=== PATIENT | male | born 1990 | race Hispanic/Latino ===

== ENCOUNTER 2018-05-26 17:54 | Emergency (ER) | payer SELFPAY ==
--- NOTE | 2018-05-26 20:08 | RAD REPORT ---
EXAM DESCRIPTION: RAD - Wrist Left 3 View - 05/26/2018 7:58 pm CLINICAL HISTORY: Fall with wrist pain COMPARISON: None. FINDINGS: Ventral dislocation of the lunate bone present. Faint lucent line is present in the midbod y of the scaphoid not definitive for fracture. Carpal bone alignment is otherwise unremarkable. No fo reign body or other soft tissue abnormality. IMPRESSION: Lunate dislocation. Faint lucent line in the scaphoid bone questionable for fracture.
--- NOTE | 2018-05-26 20:10 | RAD REPORT ---
EXAM DESCRIPTION: RAD - Forearm Left - 05/26/2018 7:58 pm CLINICAL HISTORY: Arm and wrist pain, fall 3 weeks earlier COMPARISON: None. FINDINGS: No fracture or acute bone finding of the radius and ulna. Elbow joint is normal. Scaphoid dislocation is present. Faint lucent line seen in the scaphoid bone on the wrist examination is not e vident on this study. The wrist examination better images the scaphoid bone. No foreign body or other soft tissue abnormality. IMPRESSION: Lunate dislocation. No radius or ulna fracture.
--- NOTE | 2018-05-26 20:11 | ER ---
Nurse's Notes [facility] Name: Ahsan Dixon Age: 27 yrs Sex: Male : 1990 Arrival Date: 05/26/2018 Time: 17:59 Bed Treatment Private MD: None, None Diagnosis: Lunate Dislocation;Fracture of navicular [scaphoid] bone of wrist Presentation: 05/26 18:14 Presenting complaint: Patient states: I fell off of a horse a few weeks ago and my left la1 wrist has been hurting since then, no previous imaging done. Transition of care: patient was not received from another setting of care. Onset of symptoms was May 26, 2018. Risk Assessment: Do you want to hurt yourself or someone else? Patient reports no desire to harm self or others. Initial Sepsis Screen: Does the patient meet any 2 criteria? No. Patient's initial sepsis screen is negative. Does the patient have a suspected source of infection? No. Patient's initial sepsis screen is negative. Care prior to arrival: None. 18:14 Method Of Arrival: Ambulatory la1 18:14 Acuity: PEDRO 4 la1 Historical: - Allergies: 18:15 No Known Allergies; la1 - PMHx: 18:15 None; la1 - Immunization history:: Adult Immunizations up to date. - Social history:: Smoking status: Patient/guardian denies using tobacco. - Ebola Screening: : No symptoms or risks identified at this time. Screenin:29 Abuse screen: Denies threats or abuse. Nutritional screening: No deficits noted. bb Tuberculosis screening: No symptoms or risk factors identified. Fall Risk None identified. Assessment: 19:28 General: Appears in no apparent distress. Behavior is calm, cooperative. bb 19:29 Pain: Complains of pain in left wrist. Neuro: Level of Consciousness is awake, alert, bb obeys commands, Oriented to person, place, time, situation. Cardiovascular: No deficits noted. Respiratory: Respiratory effort is even, unlabored. GI: No deficits noted. Derm: Skin is pink, warm \T\ dry. Musculoskeletal: Circulation, motion, and sensation intact. Reports pain in left wrist. 21:21 Reassessment: Patient appears in no apparent distress at this time. No changes from la1 previously documented assessment. Patient and/or family updated on plan of care and expected duration. Pain level reassessed. Vital Signs: 18:15 BP 106 / 63; Pulse 74; Resp 16; Temp 97.4; Pulse Ox 98% on R/A; Weight 68.04 kg; la1 ED Course: 17:59 Patient arrived in ED. sb2 17:59 None, None is Private Physician. sb2 18:15 Triage completed. la1 18:15 Arm band placed on left wrist. la1 18:55 Sailaja Alberts FNP-C is [facility]. kb 18:55 Eduard Fernandez MD is Attending Physician. kb 19:29 Patient has correct armband on for positive identification. Call light in reach. Adult bb w/ patient. 20:00 Wrist Left 3 View In Process Unspecified. EDMS 20:00 Forearm Left XRAY In Process Unspecified. EDMS 21:11 Orthoglass splint: Thumb spica splint applied on left forearm. mt 21:11 Sling applied to left arm. mt 21:21 No provider procedures requiring assistance completed. Patient did not have IV access la1 during this emergency room visit. Administered Medications: No medications were administered Outcome: 20:10 Discharge ordered by MD. kb 21:21 Discharged to home ambulatory. la1 21:21 Condition: stable 21:21 Discharge instructions given to patient, Instructed on discharge instructions, follow up and referral plans. medication usage, Demonstrated understanding of instructions, follow-up care, medications. 21:22 Patient left the ED. la1 Signatures: Dispatcher [employer] EDMS Sailaja Alberts FNP-C FNP-Ckb Ballard, Brenda, RN RN bb Attema, Lee, RN RN la1 Maya Oliva wy Janice Nicholas sb2
--- NOTE | 2018-05-26 20:12 | EDPHYS ---
Physician Documentation [facility] Name: Ahsan Dixon Age: 27 yrs Sex: Male : 1990 Arrival Date: 05/26/2018 Time: 17:59 Bed Treatment Private MD: None, None ED Physician Eduard Fernandez HPI: 05/26 19:48 This 27 yrs old Male presents to ER via Ambulatory with complaints of Wrist kb Injury. 19:48 The patient or guardian reports decreased range of motion, injury, pain, swelling. The kb complaints affect the left wrist diffusely. Context: The problem was sustained outdoors, resulted from a fall, from horse, on an outstretched hand. Onset: The symptoms/episode began/occurred 3 week(s) ago. Modifying factors: The symptoms are alleviated by nothing, the symptoms are aggravated by nothing. Associated signs and symptoms: Pertinent negatives: cyanosis distally, decreased sensation distally, fever, nausea, numbness distally, tingling distally, vomiting. The patient has not experienced similar symptoms in the past. The patient has not recently seen a physician. Historical: - Allergies: 18:15 No Known Allergies; la1 - PMHx: 18:15 None; la1 - Immunization history:: Adult Immunizations up to date. - Social history:: Smoking status: Patient/guardian denies using tobacco. - Ebola Screening: : No symptoms or risks identified at this time. ROS: 19:47 Constitutional: Negative for fever, chills, and weight loss, Cardiovascular: Negative kb for chest pain, palpitations, and edema, Respiratory: Negative for shortness of breath, cough, wheezing, and pleuritic chest pain, Abdomen/GI: Negative for abdominal pain, nausea, vomiting, diarrhea, and constipation, Back: Negative for injury and pain, Skin: Negative for injury, rash, and discoloration, Neuro: Negative for headache, weakness, numbness, tingling, and seizure. 19:47 MS/extremity: Positive for injury or acute deformity, pain, swelling, of the left forearm. Exam: 19:48 Constitutional: This is a well developed, well nourished patient who is awake, alert, kb and in no acute distress. Head/Face: Normocephalic, atraumatic. ENT: Nares patent. No nasal discharge, no septal abnormalities noted. Tympanic membranes are normal and external auditory canals are clear. Oropharynx with no redness, swelling, or masses, exudates, or evidence of obstruction, uvula midline. Mucous membranes moist. Neck: Trachea midline, no thyromegaly or masses palpated, and no cervical lymphadenopathy. Supple, full range of motion without nuchal rigidity, or vertebral point tenderness. No Meningismus. Chest/axilla: Normal chest wall appearance and motion. Nontender with no deformity. No lesions are appreciated. Cardiovascular: Regular rate and rhythm with a normal S1 and S2. No gallops, murmurs, or rubs. Normal PMI, no JVD. No pulse deficits. Respiratory: Lungs have equal breath sounds bilaterally, clear to auscultation and percussion. No rales, rhonchi or wheezes noted. No increased work of breathing, no retractions or nasal flaring. Abdomen/GI: Soft, non-tender, with normal bowel sounds. No distension or tympany. No guarding or rebound. No evidence of tenderness throughout. Skin: Warm, dry with normal turgor. Normal color with no rashes, no lesions, and no evidence of cellulitis. MS/ Extremity: Pulses equal, no cyanosis. Neurovascular intact. Full, normal range of motion. Neuro: Awake and alert, GCS 15, oriented to person, place, time, and situation. Cranial nerves II-XII grossly intact. Motor strength 5/5 in all extremities. Sensory grossly intact. Cerebellar exam normal. Normal gait. Vital Signs: 18:15 BP 106 / 63; Pulse 74; Resp 16; Temp 97.4; Pulse Ox 98% on R/A; Weight 68.04 kg; la1 MDM: 19:27 Patient medically screened. kb 19:48 Data reviewed: vital signs, nurses notes. Data interpreted: Pulse oximetry: on room air kb is 98 %. Interpretation: normal. 20:05 Counseling: I had a detailed discussion with the patient and/or guardian regarding: the kb historical points, exam findings, and any diagnostic results supporting the discharge/admit diagnosis, radiology results, the need for outpatient follow up, a orthopedic surgeon, to return to the emergency department if symptoms worsen or persist or if there are any questions or concerns that arise at home. 05/26 19:29 Order name: Forearm Left XRAY; Complete Time: 20:15 kb 05/26 20:00 Order name: Wrist Left 3 View; Complete Time: 20:09 EDCT 05/26 20:10 Order name: Thumb Spica Splint; Complete Time: 21:12 kb 05/26 20:10 Order name: Sling; Complete Time: 21:12 kb Administered Medications: No medications were administered Disposition: 05/27 07:36 Co-signature as Attending Physician, Eduard Fernandez MD I agree with the assessment and brigitte plan of care. Disposition: 05/26/18 20:10 Discharged to Home. Impression: Lunate Dislocation, Fracture of navicular [scaphoid] bone of wrist. - Condition is Stable. - Discharge Instructions: Scaphoid Fracture, Cast or Splint Care, [id number], Lunate Dislocation. - Medication Reconciliation Form, Thank You Letter, Antibiotic Education, Prescription Opioid Use form. - Follow up: Emergency Department; When: As needed; Reason: Worsening of condition. Follow up: Private Physician; When: 2 - 3 days; Reason: Recheck today's complaints, Continuance of care, Re-evaluation by your physician. Signatures: Dispatcher [employer] [facility] Sailaja Alberts, [employer]-C [employer]ER-Eduard Rodriguez MD MD cha Attema, Lee RN RN la1 Corrections: (The following items were deleted from the chart) 05/26 19:54 19:54 Forearm Right ordered. [facility] EDCT 19:54 19:54 Forearm Right ordered. [facility] EDCT 19:55 19:34 Wrist Left 3 View+RAD.[email or web address].BRZ ordered. [facility] 21:22 20:10 05/26/2018 20:10 Discharged to Home. Impression: Lunate Dislocation; Fracture of la1 navicular [scaphoid] bone of wrist. Condition is Stable. Forms are Medication Reconciliation Form, Thank You Letter, Antibiotic Education, Prescription Opioid Use. Follow up: Emergency Department; When: As needed; Reason: Worsening of condition. Follow up: Private Physician; When: 2 - 3 days; Reason: Recheck today's complaints, Continuance of care, Re-evaluation by your physician. kb
== END 2018-05-26 21:22 | disposition home or self-care (01) ==
LOC: ER 17:54
PROC: 2W3DX1Z Immobilization of Left Lower Arm using Splint (ICD-10-PCS; principal; 2018-05-26)
DX: S63.095A Other dislocation of left wrist and hand, initial encounter (principal); S62.002A Unspecified fracture of navicular [scaphoid] bone of left wrist, initial encounter for closed fracture; V80.010A Animal-rider injured by fall from or being thrown from horse in noncollision accident, initial encounter; Y93.52 Activity, horseback riding
CPT/HCPCS: 99283